=== PATIENT | male | born 1990 | race Caucasian/White ===

== ENCOUNTER 2017-08-28 13:18 | Emergency (ER) | payer BC ==
[2017-08-28 13:56] VITALS: BP 124/81
--- NOTE | 2017-08-28 14:14 | UC ---
Throat Pain/Nasal Dionicio HPI - HPI Summary HPI Summary: Patient presents to the PCU with chief complaint of nasal and chest congestion 3 days. He denies any fevers, chills. Endorses sweats which is intermittent 2 days. Afebrile at 99.2 on arrival. Denies any fatigue or diaphoresis. Denies any chest pain. He states he has not been sick in several years. Did not receive the flu vaccine this year. Mother is sick at home and wanted him to come to sure he does not have the flu. He no longer has a sore throat, denies ear pain or eye pain. Most of his discomfort is in the bilateral maxillary sinuses. History of sinusitis. - History of Current Complaint Chief Complaint: UCGeneralIllness Stated Complaint: CONGESTED Time Seen by Provider: 08/28/17 13:43 Hx Obtained From: Patient Onset/Duration: Sudden Onset Severity: Mild Pain Intensity: 0 Pain Scale Used: 0-10 Numeric Associated Signs & Symptoms: Positive: Negative - Epiglottits Risk Factors Epiglottis Risk Factors: Negative - Allergies/Home Medications Allergies/Adverse Reactions: Allergies Allergy/AdvReac Type Severity Reaction Status Date / Time amoxicillin Allergy Rash Verified 08/28/17 13:52 clindamycin Allergy Rash And Verified 08/28/17 13:52 Itching Penicillins Allergy Rash Verified 08/28/17 13:52 shellfish derived Allergy Vomiting Verified 08/28/17 13:52 Home Medications: Home Medications Mometasone NASAL (NF) [Nasonex (NF)] 1 spray NASAL DAILY 08/28/17 [History Confirmed 08/28/17] guaiFENesin [Mucinex] 2 tab PO DAILY 08/28/17 [History Confirmed 08/28/17] PMH/Surg Hx/FS Hx/Imm Hx Previously Healthy: Yes - Surgical History Surgical History: Yes Surgery Procedure, Year, and Place: wisdom teeth - Family History Known Family History: Positive: None - Social History Occupation: Unemployed Lives: With Family Alcohol Use: Occasionally Substance Use Type: None Smoking Status (MU): Never Smoked Tobacco Review of Systems Constitutional: Negative Skin: Negative ENT: Sore Throat, Nasal Discharge, Sinus Congestion, Sinus Pain/Tenderness Respiratory: Negative Cardiovascular: Negative Motor: Negative Neurovascular: Negative Neurological: Negative Psychological: Negative Is Patient Immunocompromised?: No All Other Systems Reviewed And Are Negative: Yes Physical Exam Triage Information Reviewed: Yes Appearance: Well-Appearing, Well-Nourished Vital Signs: Initial Vital Signs Temp 99.2 F 08/28/17 13:54 Pulse 65 08/28/17 13:54 Resp 18 08/28/17 13:54 BP 124/81 08/28/17 13:54 Pulse Ox 100 08/28/17 13:54 Vital Signs Reviewed: Yes Eye Exam: Normal Eyes: Positive: Conjunctiva Clear ENT: Positive: Hearing grossly normal, Pharynx normal, Nasal congestion, Nasal drainage, TMs normal, Sinus tenderness, Uvula midline. Negative: Pharyngeal erythema, TM red, Tonsillar swelling, Tonsillar exudate, Trismus, Muffled voice , Hoarse voice, Dental tenderness Neck exam: Normal Neck: Positive: Supple, No Lymphadenopathy Respiratory Exam: Normal Respiratory: Positive: Chest non-tender, Lungs clear Cardiovascular Exam: Normal Cardiovascular: Positive: RRR, No Murmur Musculoskeletal Exam: Normal Musculoskeletal: Positive: Strength Intact Neurological Exam: Normal Neurological: Positive: Alert Psychological: Positive: Normal Response To Family Skin Exam: Normal Throat Pain/Nasal Course/Dx - Course Course Of Treatment: During the course of treatment, the patient is evaluated for sinusitis versus respiratory complaint versus influenza. Denies any fevers or chills, but endorses some sweats. Flu swab obtained and is negative. He is given doxycycline 5 days, flonase and mucinex for possible sinusitis. Tenderness to the bilateral maxillary sinus on palpation and percussion. No tenderness to palpation of the frontal sinuses. Lungs clear to auscultation bilaterally. TMs with no erythema or bulging. - Differential Dx/Diagnosis Provider Diagnoses: Sinusitis Discharge - Sign-Out/Discharge Documenting (check all that apply): Discharge - Discharge Plan Condition: Stable Disposition: HOME Prescriptions: Azithromyxin ROXANNE (NF) [Z-Roxanne (Zithromax) 250 mg tabs #6] 2 tab PO .TODAY, THEN 1 DAILY #6 tab Fluticasone NASAL SPRAY 50MCG* [Flonase NASAL SPRAY 50MCG*] 2 spray BOTH NARES DAILY #1 btl guaiFENesin ER TAB [Mucinex*] 600 mg PO BID #10 tab.er Patient Education Materials: Sinusitis (ED) Referrals: Sebastian Ridley MD [Primary Care Provider] - Additional Instructions: Doxycycline 100 mg twice daily 5 days Humidifier in the home will help Continue with Mucinex as prescribed 600mg twice daily Flonase - 2 sprays in each nare - Billing Disposition and Condition Condition: STABLE Disposition: HOME
== END 2017-08-28 14:35 | disposition home or self-care (01) ==
LOC: UCEAST 13:18
DX: J32.9 Chronic sinusitis, unspecified (principal); Z88.3 Allergy status to other anti-infective agents; Z88.0 Allergy status to penicillin
CPT/HCPCS: 87502; 99212; G0463

== ENCOUNTER 2018-07-28 11:42 | Emergency (ER) | payer BC ==
[2018-07-28 12:59] VITALS: BP 129/59
--- NOTE | 2018-07-28 13:02 | UC ---
FLU HPI - HPI Summary HPI Summary: 27 yo male presents with sinus pain/pressure/congestion, sore throat, and right eye redness/drainage. He tells me that for the last 3-4 days he's been having sinus symptoms and a sore throat. This morning he woke up and his right eye was red and draining clear/yellow fluid and was itchy. He does wear contacts, but changes them daily. Has had pink eye multiple times in the past because he falls asleep while wearing them. Has not taken anything OTC for his symptoms. Denies fever, chills, cough, rash, eye trauma, or FB in eye. - History of Current Complaint Chief Complaint: UCRespiratory Stated Complaint: EYE COMPLAINT Hx Obtained From: Patient Onset/Duration: Gradual Onset Severity Currently: Mild Severity Initially: Mild Pain Intensity: 3 Pain Scale Used: 0-10 Numeric - Allergy/Home Medications Allergies/Adverse Reactions: Allergies Allergy/AdvReac Type Severity Reaction Status Date / Time amoxicillin Allergy Rash Verified 07/28/18 12:59 clindamycin Allergy Rash And Verified 07/28/18 12:59 Itching Penicillins Allergy Rash Verified 07/28/18 12:59 shellfish derived Allergy Vomiting Verified 07/28/18 12:59 Home Medications: Home Medications Ibuprofen [Advil] 400 mg PO ONCE PRN 07/28/18 [History Confirmed 07/28/18] PMH/Surg Hx/FS Hx/Imm Hx - Additional Past Medical History Additional PMH: None - Surgical History Surgical History: Yes Surgery Procedure, Year, and Place: wisdom teeth - Family History Known Family History: Positive: None - Social History Lives: With Family Alcohol Use: Rare Substance Use Type: None Smoking Status (MU): Never Smoked Tobacco Review of Systems All Other Systems Reviewed And Are Negative: Yes Constitutional: Positive: Negative Skin: Positive: Negative Eyes: Positive: Drainage, Eye Redness ENT: Positive: Sore Throat, Nasal Discharge, Sinus Congestion, Sinus Pain/ Tenderness Respiratory: Positive: Negative Cardiovascular: Positive: Negative Gastrointestinal: Positive: Negative Neurovascular: Positive: Negative Neurological: Positive: Negative Psychological: Positive: Negative Physical Exam - Summary Physical Exam Summary: GENERAL: NAD. WDWN. No pain distress. SKIN: No rashes, sores, lesions, or open wounds. HEENT: Head: AT/NC Eyes: EOM intact. PERRLA. RIGHT EYE: Mild scleral injection. Conjunctiva with mild erythema and inflammation. Mild clear discharge. Fluorescein exam normal and without increased uptake, abrasion, ulcer, or ashwini sign. LEFT EYE: Conjunctiva clear without inflammation or discharge. No FBs appreciated Ears: Hearing grossly normal. TMs intact, no bulging, erythema, or edema. Nose: Nasal mucosa mildly swollen and erythematous with yellow/ clear discharge. TTP maxillary and frontal sinus. Positive post nasal drip Throat: Posterior oropharynx without exudates, erythema, or tonsillar enlargement. Uvula midline. NECK: Supple. Nontender. No lymphadenopathy. CHEST: CTAB. No r/r/w. No accessory muscle use. Breathing comfortably and in no distress. CV: RRR. Without m/r/g. Pulses intact. NEURO: Alert. PSYCH: Age appropriate behavior. Triage Information Reviewed: Yes Vital Signs: Initial Vital Signs Temp 99 F 07/28/18 12:55 Pulse 97 07/28/18 12:55 Resp 18 07/28/18 12:55 BP 129/59 07/28/18 12:55 Pulse Ox 100 07/28/18 12:55 Laboratory Tests 07/28/18 13:28 Influenza A (Rapid) Negative Influenza B (Rapid) Negative Vital Signs Reviewed: Yes Flu Course/Dx - Course Course Of Treatment: Sinusitis and right eye conjunctivitis - Differential Dx/Diagnosis Provider Diagnosis: Sinusitis, Conjunctivitis Discharge - Sign-Out/Discharge Documenting (check all that apply): Patient Departure All imaging exams completed and their final reports reviewed: No Studies - Discharge Plan Condition: Stable Disposition: HOME Prescriptions: Azithromycin TAB* [Zithromax TAB (Z-ROXANNE) 250 mg #6 tabs] 2 tab PO .TODAY, THEN 1 DAILY #1 roxanne Ofloxacin 0.3% (Eye Drop) [Ocuflox OPTH 0.3% (Eye Drop)] 1 drop BOTH EYES QID # 1 btl Patient Education Materials: Sinusitis (ED), Conjunctivitis (ED) Referrals: Sebastian Ridley MD [Primary Care Provider] - Additional Instructions: If you develop a fever, shortness of breath, chest pain, new or worsening symptoms - please call your PCP or go to the ED. - Billing Disposition and Condition Condition: STABLE Disposition: Home
[2018-07-28] MEDS ORDERED: Fluorescein Sodium TOPICAL* 1 MG TEST STRIP OPHTHALMIC ONE (13:08)
[2018-07-28] MEDS ORDERED: Tetracaine 0.5% OPTH.SOL 4 ML* 1 DROP BTL RIGHT EYE ONE (13:08)
[2018-07-28 13:40] LABS: Influenza A Molecular NEGATIVE (Negative); Influenza B Molecular NEGATIVE (Negative)
== END 2018-07-28 13:48 | disposition home or self-care (01) ==
LOC: UCEAST 11:42
DX: J32.9 Chronic sinusitis, unspecified (principal); H10.31 Unspecified acute conjunctivitis, right eye; Z88.1 Allergy status to other antibiotic agents; Z88.0 Allergy status to penicillin; Z91.013 Allergy to seafood
CPT/HCPCS: 99212; A9270-GY; G0463

== ENCOUNTER 2018-10-20 11:32 | Emergency (ER) | payer BC ==
[2018-10-20 12:02] VITALS: BP 122/64
--- NOTE | 2018-10-20 12:06 | UC ---
Throat Pain/Nasal Dionicio HPI - HPI Summary HPI Summary: 28-year-old male presents with 4 day history of nasal congestion, clear nasal discharge, sinus pressure, and occasional nonproductive cough. States he has taken some [id number] Mucinex and has been using Nasonex nasal spray for the last couple of days with some relief in symptoms. Denies fever, chills, ear pain, sore throat, chest pain, or shortness of breath. - History of Current Complaint Chief Complaint: UCRespiratory Stated Complaint: SINUS ISSUE Time Seen by Provider: 10/20/18 12:04 Hx Obtained From: Patient Pain Intensity: 6 - Allergies/Home Medications Allergies/Adverse Reactions: Allergies Allergy/AdvReac Type Severity Reaction Status Date / Time amoxicillin Allergy Rash Verified 10/20/18 12:02 clindamycin Allergy Rash And Verified 10/20/18 12:02 Itching Penicillins Allergy Rash Verified 10/20/18 12:02 shellfish derived Allergy Vomiting Verified 10/20/18 12:02 Home Medications: Home Medications guaiFENesin [Mucinex] 1 tab 10/20/18 [History] PMH/Surg Hx/FS Hx/Imm Hx Previously Healthy: Yes - Denies significant PMH - Surgical History Surgical History: Yes Surgery Procedure, Year, and Place: wisdom teeth - Family History Known Family History: Positive: Non-Contributory - Social History Occupation: Student Lives: Dormitory/Roommates Alcohol Use: Rare Substance Use Type: None Smoking Status (MU): Never Smoked Tobacco Review of Systems All Other Systems Reviewed And Are Negative: Yes Constitutional: Negative: Fever, Chills Eyes: Negative: Drainage, Eye Redness ENT: Positive: Nasal Discharge, Sinus Congestion, Sinus Pain/Tenderness. Negative: Sore Throat, Ear Ache Respiratory: Positive: Cough. Negative: Shortness Of Breath Cardiovascular: Negative: Palpitations, Chest Pain Gastrointestinal: Negative: Abdominal Pain, Vomiting, Diarrhea, Nausea Genitourinary: Positive: Negative Musculoskeletal: Positive: Negative Neurological: Positive: Negative Is Patient Immunocompromised?: No Physical Exam - Summary Physical Exam Summary: GENERAL APPEARANCE: Well developed, well nourished, alert and cooperative, and appears to be in no acute distress. EYES: Conjunctiva clear. No drainage. EARS: External auditory canals and tympanic membranes clear, hearing grossly intact. NOSE: Moderate nasal congestion. No discharge. THROAT: Pharyngeal cobblestoning. No tonsilar inflammation, swelling, exudate, or lesions. Uvula midline. Oral cavity normal. Teeth and gingiva in good general condition. NECK: Neck supple, non-tender without lymphadenopathy. CARDIAC: Normal S1 and S2. No S3, S4 or murmurs. Rhythm is regular. There is no peripheral edema, cyanosis or pallor. Extremities are warm and well perfused. Capillary refill is less than 2 seconds. Peripheral pulses intact. LUNGS: Clear to auscultation without rales, rhonchi, wheezing or diminished breath sounds. Non-productive cough. ABDOMEN: Positive bowel sounds. Soft, nondistended, nontender. No guarding or rebound. No masses or hepatosplenomegally. MUSKULOSKELETAL: ROM intact to all extremities. No joint erythema or tenderness. Normal muscular development. Normal gait. SKIN: Skin normal color, texture and turgor with no lesions or eruptions. Triage Information Reviewed: Yes Vital Signs: Initial Vital Signs Temp 98.5 F 10/20/18 11:58 Pulse 68 10/20/18 11:58 Resp 18 10/20/18 11:58 BP 122/64 10/20/18 11:58 Pulse Ox 100 10/20/18 11:58 Vital Signs Reviewed: Yes Throat Pain/Nasal Course/Dx - Course Course Of Treatment: 28-year-old male presents with 4 day history of nasal congestion, clear nasal discharge, sinus pressure, and occasional nonproductive cough. States he has taken some [id number] Mucinex and has been using Nasonex nasal spray for the last couple of days with some relief in symptoms. Denies fever, chills, ear pain, sore throat, chest pain, or shortness of breath. Afebrile. Vital signs stable. Exam remarkable for moderate nasal congestion, maxillary sinus tenderness, pharyngeal cobblestoning, and a nonproductive cough. Recommending symptomatic treatment for an acute sinusitis including saline rinses, steroid nasal spray, and an [id number] decongestant. He is to return here or follow up with his primary care provider in 3-5 days if symptoms do not improve. Anticipatory guidance and warning symptoms were reviewed with the patient. Verbalizes understanding and agrees with plan of care. - Differential Dx/Diagnosis Differential Diagnosis/HQI/PQRI: Pharyngitis, Sinusitis, Tonsillitis, URI Provider Diagnosis: Acute sinusitis Discharge - Sign-Out/Discharge Documenting (check all that apply): Patient Departure All imaging exams completed and their final reports reviewed: No Studies - Discharge Plan Condition: Stable Disposition: HOME Patient Education Materials: Sinusitis (ED) Referrals: Sebastian Ridley MD [Primary Care Provider] - 5 Days Additional Instructions: Your history and exam are consistent with a sinus infection. Sinus infections without fever are most often caused by a viral infection. Viral infections do not respond to antibiotics and are limited to the treatment of symptoms. Viral infections typically run their course in 7-10 days. Drink plenty of fluids to avoid dehydration especially if you are running any fever. Use a saline rinse kit such as Neti Pot or NeilMed at least twice a day to help thin secretions and promote drainage of the sinuses. Continue using your mometasone (Nasonex) nasal spray 2 sprays each nostril once daily. Use an over the counter decongestant such as Sudafed according to directions to help with congestion. Take over the counter acetaminophen (Tylenol) or ibuprofen (Advil, Motrin) according to directions as needed for pain or fever. Follow up with your primary care provider in 5-7 days if symptoms persist. Seek immediate medical attention in the emergency room if you have fever greater than 100.5 F despite taking acetaminophen or ibuprofen, have chest pain , difficulty breathing, are unable to swallow, or have any worsening of symptoms. - Billing Disposition and Condition Condition: STABLE Disposition: Home
--- NOTE | 2018-10-20 17:58 | UC ---
- Progress Note Progress Note: I was notified by nursing that patient's mother called concerned that he was not prescribed antibiotics for his sinus infection. According to RN she states he understated the duration of his symptom and failed to report a fever. Nursing notified mother that we could not discuss his care with her but would contact the patient to discuss any concerns he may have regarding his treatment plan. I called the patient personally at 17:50 but there was no response. I left a voicemail to have the patient call back to discuss any concerns. Course/Dx - Diagnoses Provider Diagnoses: Acute sinusitis Discharge - Sign-Out/Discharge Documenting (check all that apply): Post-Discharge Follow Up All imaging exams completed and their final reports reviewed: No Studies - Discharge Plan Condition: Stable Disposition: HOME Patient Education Materials: Sinusitis (ED) Referrals: Sebastian Ridley MD [Primary Care Provider] - 5 Days Additional Instructions: Your history and exam are consistent with a sinus infection. Sinus infections without fever are most often caused by a viral infection. Viral infections do not respond to antibiotics and are limited to the treatment of symptoms. Viral infections typically run their course in 7-10 days. Drink plenty of fluids to avoid dehydration especially if you are running any fever. Use a saline rinse kit such as Neti Pot or NeilMed at least twice a day to help thin secretions and promote drainage of the sinuses. Continue using your mometasone (Nasonex) nasal spray 2 sprays each nostril once daily. Use an over the counter decongestant such as Sudafed according to directions to help with congestion. Take over the counter acetaminophen (Tylenol) or ibuprofen (Advil, Motrin) according to directions as needed for pain or fever. Follow up with your primary care provider in 5-7 days if symptoms persist. Seek immediate medical attention in the emergency room if you have fever greater than 100.5 F despite taking acetaminophen or ibuprofen, have chest pain , difficulty breathing, are unable to swallow, or have any worsening of symptoms. - Billing Disposition and Condition Condition: STABLE Disposition: Home
== END 2018-10-20 12:23 | disposition home or self-care (01) ==
LOC: UCEAST 11:32
DX: J01.90 Acute sinusitis, unspecified (principal); R05 Cough; Z88.1 Allergy status to other antibiotic agents; Z88.0 Allergy status to penicillin; Z91.013 Allergy to seafood
CPT/HCPCS: 99211; G0463

== ENCOUNTER 2019-05-25 09:15 | Emergency (ER) | payer BC, OTHER ==
[2019-05-25 09:28] VITALS: BP 132/72
[2019-05-25 10:09] LABS: Influenza A Molecular NEGATIVE (Negative); Influenza B Molecular NEGATIVE (Negative)
--- NOTE | 2019-05-25 10:31 | UC ---
FLU HPI - HPI Summary HPI Summary: 2 DAYS OF FEVER, CHILLS, HEADACHE AND FATIGUE. VERY MILD CONGESTION BUT NO COUGH. GIRLFRIEND CURRENTLY BEING TREATED FOR FLU WITH TAMIFLU. UP TO DATE FLU SHOT AND ALL OTHER RECOMMENDED VACCINATIONS. - History of Current Complaint Chief Complaint: UCGeneralIllness Stated Complaint: CHILLS, HEADACHE Time Seen by Provider: 05/25/19 09:33 Hx Obtained From: Patient Onset/Duration: Gradual Onset, Lasting Days, Still Present Severity Currently: Moderate Severity Initially: Moderate Pain Intensity: 5 Pain Scale Used: 0-10 Numeric Associated Signs & Symptoms: Positive: Fever, Nasal Congestion, Headache. Negative: Myalgia, Cough, Vomiting - Allergy/Home Medications Allergies/Adverse Reactions: Allergies Allergy/AdvReac Type Severity Reaction Status Date / Time amoxicillin Allergy Rash Verified 05/25/19 09:23 clindamycin Allergy Rash And Verified 05/25/19 09:23 Itching Penicillins Allergy Rash Verified 05/25/19 09:23 shellfish derived Allergy Vomiting Verified 05/25/19 09:23 PMH/Surg Hx/FS Hx/Imm Hx Previously Healthy: Yes - Surgical History Surgical History: Yes Surgery Procedure, Year, and Place: wisdom teeth - Family History Known Family History: Positive: Non-Contributory - Social History Alcohol Use: Rare Substance Use Type: None Smoking Status (MU): Never Smoked Tobacco Review of Systems All Other Systems Reviewed And Are Negative: Yes Constitutional: Positive: Fever, Fatigue ENT: Positive: Nasal Discharge Respiratory: Positive: Negative Cardiovascular: Positive: Negative Gastrointestinal: Positive: Negative Neurological: Positive: Headache Physical Exam Triage Information Reviewed: Yes Appearance: Well-Appearing, No Pain Distress, Well-Nourished Vital Signs: Initial Vital Signs Temp 100.4 F 05/25/19 09:24 Pulse 81 05/25/19 09:24 Resp 18 05/25/19 09:24 BP 132/72 05/25/19 09:24 Pulse Ox 98 05/25/19 09:24 Laboratory Tests 05/25/19 09:57 Influenza A (Rapid) Negative Influenza B (Rapid) Negative Vital Signs Reviewed: Yes Eyes: Positive: Conjunctiva Clear ENT: Positive: Hearing grossly normal, Pharynx normal, TMs normal Neck: Positive: Supple, Nontender, No Lymphadenopathy Respiratory Exam: Normal Cardiovascular Exam: Normal Abdomen Description: Positive: Nontender, Soft Musculoskeletal: Positive: No Edema Neurological: Positive: Alert, Other: - NO SIGNS OF MENINGISMUS Psychological: Positive: Age Appropriate Behavior Skin: Negative: Rashes Flu Course/Dx - Course Course Of Treatment: DISCUSSED EMPIRIC TREATMENT FOR FLU BASED ON GIRLFRIEND CURRENTLY BEING TREATED. PATIENT DID WANT A SWAB ANYWAY SO HE COULD NOTIFY HIS HOUSEHOLD CONTACTS IF POSITIVE. SWAB WAS NEGATIVE. DESPITE NEGATIVE SWAB WILL COVER WITH TAMIFLU ANYWAY DUE TO GIRLFRIEND WITH FLU. FOLLOW-UP IF NEEDED. - Differential Dx/Diagnosis Provider Diagnosis: Acute viral syndrome Discharge ED - Sign-Out/Discharge Documenting (check all that apply): Patient Departure All imaging exams completed and their final reports reviewed: No Studies - Discharge Plan Condition: Stable Disposition: HOME Prescriptions: Oseltamivir CAP* [Tamiflu CAP*] 75 mg PO BID #10 cap Patient Education Materials: Viral Syndrome (ED) Referrals: Sebastian Ridley MD [Primary Care Provider] - If Needed Additional Instructions: FLU NEGATIVE BUT GIVEN YOUR GIRLFRIEND IS BEING TREATED FOR FLU WILL GO AHEAD AND COVER YOU WITH TAMIFLU. IN ANY CASE YOUR SYMPTOMS ARE LIKELY VIRALLY MEDIATED AND SHOULD RESOLVE ON THEIR OWN WITH TIME. NO INDICATION FOR ANTIBIOTICS AT PRESENT. REST, HYDRATE, OTC MEDS NEEDED. SEEK FOLLOW-UP IF YOU ARE NOT IMPROVING OVER THE NEXT 1-2 WEEKS. - Billing Disposition and Condition Condition: STABLE Disposition: Home
== END 2019-05-25 10:17 | disposition home or self-care (01) ==
LOC: UCEAST 09:15
DX: B34.9 Viral infection, unspecified (principal); R53.83 Other fatigue; R51 Headache; Z88.0 Allergy status to penicillin; Z88.1 Allergy status to other antibiotic agents; Z91.013 Allergy to seafood
CPT/HCPCS: 99212; G0463